=== PATIENT | male | born 1980 | race Caucasian/White ===

== ENCOUNTER 2022-12-12 09:58 | Emergency (ER) | payer SELFPAY ==
--- NOTE | ~2022-12-12 | XR_ITS ---
EXAMINATION: XR foot LT min 3V DATE: 12/12/2022 10:52 INDICATION: Left foot pain, initial encounter TECHNIQUE: Dorsoplantar, lateral, and 2 oblique views of the left foot were obtained. COMPARISON: 01/22/2018 FINDINGS: There is an acute, traumatic, mildly comminuted fracture at the base of the third proximal phalanx extending to the metatarsophalangeal joint. No additional fracture is identified. There is pl ate and screw fixation of the distal fibula. A suture anchor is noted in the medial malleolus. IMPRESSION: 1. Acute, comminuted intra-articular fracture at the base of the third proximal phalanx. Reviewed, dictated and finalized at location B.
[2022-12-12 10:29] VITALS: BP 140/88; PULSE 93; RESP 16; TEMP 36.6; O2SAT 100
--- NOTE | 2022-12-12 11:28 | ED.LOWEXIN ---
HPI - Extremity Injury (Lower) General Chief Complaint: Extremity Injury, Lower Stated Complaint: foot injury Time Seen by Provider: 12/12/22 10:33 History of Present Illness HPI Narrative: 42-year-old male reports for evaluation for left foot pain after he stubbed it on a stake in the ground today. Patient states he was carrying his laundry outside and he forgot it to stick in his driveway and kicked it as he was walking. He is reporting pain to the proximal third phalanx of his left foot with ecchymosis. He is reporting difficulty walking secondary to pain. He has peripheral neuropathy, denies worsening numbness or tingling since the injury. Related Data Allergies Allergy/AdvReac Type Severity Reaction Status Date / Time No Known Allergies Allergy Unverified 01/22/18 18:49 Review of Systems Review of Systems: CONSTITUTIONAL: Denies fever, chills EYES: Denies visual changes, redness, or discharge. ENT: Denies rhinorrhea, congestion, sore throat, or otalgia. CARDIOVASCULAR: Denies chest pain, palpitations, or edema. RESPIRATORY: Denies cough or dyspnea. GASTROINTESTINAL: Denies abdominal pain, nausea, vomiting, or diarrhea. GENITOURINARY: Denies dysuria or hematuria. SKIN: Denies rash or itching. MUSCULOSKELETAL: See HPI NEUROLOGIC: Denies headache, numbness, dizziness, or weakness. PSYCHIATRIC: Denies anxiety or depression. Exam Narrative: GENERAL: Well-appearing, in no acute distress. HEAD: Normocephalic NECK: Supple. CHEST: No respiratory distress. Clear to auscultation, no adventitious breath sounds. HEART: Regular rate and rhythm. No murmur heard. Normal peripheral pulses. EXTREMITIES: Left foot: Tenderness and ecchymosis at the base of the third phalanx with ecchymosis between the third and second toe, ecchymosis to the plantar aspect of the foot to the base of the 2nd-4th toes. Limited ROM of toes secondary to pain. No overlying lacerations, abrasions or puncture wounds. No tenderness to remainder of toes, foot or ankle. DP pulse 2+. Cap refill <2. Sensation intact. SKIN: Warm, dry, no rash. NEURO: No focal deficits. Alert and oriented x3. PSYCH: Normal mood and affect. Course Vital Signs Vital signs: Vital Signs Temperature 97.8 F 12/12/22 10:29 Pulse Rate 93 12/12/22 10:29 Respiratory Rate 16 12/12/22 10:29 Blood Pressure 140/88 12/12/22 10:29 Pulse Oximetry 100 12/12/22 10:29 Oxygen Delivery Room Air 12/12/22 10:29 Temperature 97.8 F 12/12/22 10:29 Pulse Rate 93 12/12/22 10:29 Respiratory Rate 16 12/12/22 10:29 Blood Pressure 140/88 12/12/22 10:29 Pulse Oximetry 100 12/12/22 10:29 Oxygen Delivery Room Air 12/12/22 10:29 MDM - Extremity Injury (Lower) MDM Narrative Medical decision making narrative: 42-year-old male reports for evaluation for left foot pain after he stubbed it on a stake in the ground today. See HPI for further history. Vital stable. Exam significant for tenderness and ecchymosis to the base of the third phalanx of the left foot. He is neurovascularly intact. X-ray of the foot shows an acute, comminuted intra-articular fracture at the base of the third proximal phalanx. No overlying lacerations, abrasions or puncture wounds concerning for an open fracture. Imaging discussed with patient. He was placed in a postop shoe, toes pee taped, crutches provided. Referred him to podiatry and encouraged him to follow-up closely. Advised him to take Tylenol ibuprofen for pain pain and RICE. He declined narcotic pain medications for breakthrough pain. Strict ED return precautions discussed. He is agreeable to the plan verbalized understanding. Discharged in stable condition. Medical Records Attestation: I reviewed the patient's medical records. Imaging Data Radiologist's impression: Impressions Foot X-Ray 12/12/22 10:57 IMPRESSION: 1. Acute, comminuted intra-articular fracture at the base of the third proximal phalanx.
[2022-12-12] MEDS: ACETAMINOPHEN 500 MG TABLET 1000 MG PO (11:51)
[2022-12-12] MEDS: IBUPROFEN 600 MG TABLET PO (11:52)
--- NOTE | 2022-12-12 11:56 | PC.NURSE ---
patient refused crutches. states he has some at home and is able to use them appropriately
== END 2022-12-12 11:57 | disposition home or self-care (01) ==
PROVIDERS: Emergency Provider Physician Assistant
DX: S92.512A Displaced fracture of proximal phalanx of left lesser toe(s), initial encounter for closed fracture (principal); G62.9 Polyneuropathy, unspecified; W22.8XXA Striking against or struck by other objects, initial encounter
CPT/HCPCS: 73630; 99284; A9270